=== PATIENT | male | born 1965 | race Caucasian/White ===

== ENCOUNTER 2024-01-11 21:32 | Inpatient (IN) | payer OTHER ==
[2024-01-11 22:55] VITALS: BMI 33.0
[2024-01-11] MEDS ORDERED: NICOTINE POLACRILEX 2 MG GUM BUC PRN (23:04)
[2024-01-11] MEDS ORDERED: hydrOXYzine PAMOATE 25 MG CAPSULE (FP) PO PRN (23:04)
[2024-01-11] MEDS ORDERED: ACETAMINOPHEN 325 MG TABLET (FP) PO PRN (23:04)
[2024-01-11] MEDS ORDERED: LOPERAMIDE HCL 2 MG CAPSULE PO PRN (23:04)
[2024-01-11] MEDS ORDERED: MAG HYDROX/AL HYDROX/SIMETH 30 ML UNIT-DOSE CUP PO PRN (23:04)
[2024-01-11] MEDS ORDERED: IBUPROFEN 400 MG TABLET (FP) PO PRN (23:04)
[2024-01-11] MEDS ORDERED: BENZONATATE 200 MG CAPSULE PO PRN (23:04)
[2024-01-11] MEDS ORDERED: guaiFENesin 600 MG TABLET.ER (FP) PO PRN (23:04)
[2024-01-11] MEDS ORDERED: IBUPROFEN 600 MG TABLET (FP) PO PRN (23:04)
[2024-01-11] MEDS ORDERED: NALOXONE HCL 0.4 MG/ML VIAL IM PRN (23:04)
[2024-01-11] MEDS ORDERED: BENZOCAINE/MENTHOL (CHLORASEPTIC ) LOZENGE MM PRN (23:04)
[2024-01-11] MEDS ORDERED: P-EPHED 60MG/TRIPROLIDI 2.5MG TABLET PO PRN (23:04)
[2024-01-11] MEDS ORDERED: POLYETHYLENE GLYCOL (HEALTHYLAX) 3350 17 GM PACKET PO PRN (23:04)
[2024-01-11] MEDS ORDERED: MAGNESIUM HYDROX 2400MG/30ML ORAL SUSPENSION 30 ML CUP PO PRN (23:04)
[2024-01-11] MEDS ORDERED: NICOTINE POLACRILEX 2 MG LOZENGE BC PRN (23:04)
[2024-01-11] MEDS ORDERED: NALOXONE HCL (KLOXXADO) 8 MG SPRAY NS PRN (23:04)
[2024-01-12] MEDS: MELATONIN 5 MG TABLETS PO SCH (01:15)
[2024-01-12] MEDS ORDERED: ALBUTEROL SO4 HFA INHALER IH PRN (01:38)
[2024-01-12 09:53] LABS: POTASSIUM 4.3 mmol/L (3.5-5.1)
[2024-01-12 10:01] LABS: HEMATOCRIT 37.7 % (35.4-49); HEMOGLOBIN 13.2 GM/dL (11.7-16.9); MCH 29.9 pg (25.7-33.7); MEAN CELL VOLUME 85.6 fl (80-96); MEAN PLT VOLUME 7.2 fl (7.5-11.1); PLATELET COUNT 230 10^3/uL (134-434); RBC 4.41 M/mm3 (4.00-5.60); RDW 13.8 % (11.9-15.9); WHITE BLOOD COUNT 6.5 K/mm3 (4.0-10.0)
[2024-01-12 10:05] LABS: CALCIUM 8.5 mg/dL (8.5-10.1)
[2024-01-12 10:06] LABS: ALBUMIN 3.1 g/dl (3.4-5.0); BLOOD UREA NITROGEN 16.6 mg/dL (7-18)
[2024-01-12 10:09] LABS: CREATININE 0.9 mg/dL (0.55-1.3)
[2024-01-12 10:11] LABS: TOT PROT 6.2 g/dl (6.4-8.2)
[2024-01-12] MEDS: PRENATAL VITAMINS W/ FOLIC ACID TABLET (FP) PO SCH (10:16)
[2024-01-12] MEDS: TUBERCULIN PPD 5 TU/0.1ML SYRINGE (IN PATIENT USE ONLY) ID ONE (10:17)
[2024-01-12] MEDS ORDERED: TUBERCULIN PPD 5 TU/0.1ML VIAL ID ONE (10:17)
[2024-01-12 10:19] LABS: BILIRUBIN,TOTAL 0.4 mg/dL (0.2-1)
[2024-01-12 12:19] LABS: SYPHILIS W/ RPR CONF NON-REACTIVE (NONREACTIVE)
[2024-01-12 14:08] LABS: URINE APPEARANCE CLEAR; URINE BILIRUBIN NEGATIVE (NEGATIVE); URINE COLOR YELLOW; URINE GLUCOSE (UA) NEGATIVE (NEGATIVE); URINE KETONE NEGATIVE (NEGATIVE); URINE LEUK ESTERASE NEGATIVE (NEGATIVE); URINE NITRITE NEGATIVE (NEGATIVE); URINE PROTEIN NEGATIVE (NEGATIVE)
[2024-01-12] MEDS: THIAMINE 100 MG TABLET PO SCH (21:16)
[2024-01-13] MEDS ORDERED: PRENATAL VITAMINS W/ FOLIC ACID TABLET (FP) PO PRN (11:42)
[2024-01-21 07:14] VITALS: RESP 18
[2024-01-23 06:46] VITALS: BP 119/78; PULSE 73; TEMP 97.2
== END 2024-01-23 12:50 | disposition home or self-care (01) | DRG 772 ==
LOC: YASAS 21:32 → Y3E 23:27
PROVIDERS: ADMIT Allergy & Immunology; ATTEND Psychiatry & Neurology Pain Medicine
PROC: HZ42ZZZ Group Counseling for Substance Abuse Treatment, Cognitive-Behavioral (ICD-10-PCS; principal; 2024-01-11)
DX: F14.20 Cocaine dependence, uncomplicated (principal); F12.20 Cannabis dependence, uncomplicated; F17.210 Nicotine dependence, cigarettes, uncomplicated; J45.909 Unspecified asthma, uncomplicated; E78.5 Hyperlipidemia, unspecified; E11.9 Type 2 diabetes mellitus without complications
CPT/HCPCS: 36415; 80053; 80305; 81003; 82962; 85027; 86780; 86803; 87811; 93005; 93010

== ENCOUNTER 2024-07-18 18:24 | Inpatient (IN) | payer OTHER ==
[2024-07-18 18:46] VITALS: BMI 29.6
[2024-07-18] MEDS ORDERED: BENZONATATE 200 MG CAPSULE PO PRN (20:32)
[2024-07-18] MEDS ORDERED: guaiFENesin 600 MG TABLET.ER (FP) PO PRN (20:32)
[2024-07-18] MEDS ORDERED: NICOTINE POLACRILEX 2 MG GUM BUC PRN (20:32)
[2024-07-18] MEDS ORDERED: LOPERAMIDE HCL 2 MG CAPSULE PO PRN (20:32)
[2024-07-18] MEDS ORDERED: IBUPROFEN 400 MG TABLET (FP) PO PRN (20:32)
[2024-07-18] MEDS ORDERED: ACETAMINOPHEN 325 MG TABLET (FP) PO PRN (20:32)
[2024-07-18] MEDS ORDERED: MAG HYDROX/AL HYDROX/SIMETH 30 ML UNIT-DOSE CUP PO PRN (20:32)
[2024-07-18] MEDS ORDERED: BENZOCAINE/MENTHOL (CHLORASEPTIC ) LOZENGE MM PRN (20:32)
[2024-07-18] MEDS ORDERED: POLYETHYLENE GLYCOL (HEALTHYLAX) 3350 17 GM PACKET PO PRN (20:32)
[2024-07-18] MEDS ORDERED: MAGNESIUM HYDROX 2400MG/30ML ORAL SUSPENSION 30 ML CUP PO PRN (20:32)
[2024-07-18] MEDS ORDERED: hydrOXYzine PAMOATE 25 MG CAPSULE (FP) PO PRN (20:32)
[2024-07-18] MEDS ORDERED: NALOXONE (NARCAN) HCL 4 MG/0.1 ML SPRAY NS PRN (20:32)
[2024-07-18] MEDS ORDERED: IBUPROFEN 600 MG TABLET (FP) PO PRN (20:32)
[2024-07-18] MEDS: THIAMINE 100 MG TABLET PO SCH (22:03)
[2024-07-18] MEDS: MELATONIN 5 MG TABLETS PO SCH (22:04)
[2024-07-18] MEDS: BUDESONIDE/FORMETEROL FUMARATE 80/4.5 mcg INHALER IH SCH (22:32)
[2024-07-19] MEDS: CHOLECALCIFEROL (VIT D3) 1,000 UNIT (25 MCG) TABLET PO SCH (09:59)
[2024-07-19] MEDS: TIOTROPIUM BROMIDE 2.5 MCG (SPIRIVA) RESPIMAT INHALER IH SCH (09:59)
[2024-07-19] MEDS: AZITHROMYCIN 250 MG TABLET PO SCH (10:00)
[2024-07-19] MEDS: ALBUTEROL SO4 HFA INHALER IH PRN (10:00)
[2024-07-19] MEDS: predniSONE 20 MG TABLET (UD) PO SCH (10:00)
[2024-07-19] MEDS: PRENATAL VITAMINS W/ FOLIC ACID TABLET (FP) PO SCH (10:00)
[2024-07-19 13:19] LABS: HEMOGLOBIN 13.7 GM/dL (11.7-16.9); MCH 29.4 pg (25.7-33.7); MCHC 33.5 g/dl (32.0-35.9); MEAN CELL VOLUME 87.9 fl (80-96); MEAN PLT VOLUME 8.3 fl (7.5-11.1); PLATELET COUNT 251 10^3/uL (134-434); RBC 4.66 M/mm3 (4.00-5.60); RDW 14.9 % (11.9-15.9); WHITE BLOOD COUNT 7.3 K/mm3 (4.0-10.0)
[2024-07-19 13:29] LABS: POTASSIUM 4.4 mmol/L (3.5-5.1)
[2024-07-19 13:36] LABS: ALBUMIN 3.4 g/dl (3.4-5.0); BLOOD UREA NITROGEN 26.7 mg/dL (7-18); CALCIUM 9.1 mg/dL (8.5-10.1)
[2024-07-19 13:39] LABS: CREATININE 0.9 mg/dL (0.55-1.3)
[2024-07-19 13:41] LABS: BILIRUBIN,TOTAL 0.6 mg/dL (0.2-1); TOT PROT 6.6 g/dl (6.4-8.2)
[2024-07-19 14:18] LABS: PH,URINE 5.5 (5.0-8.0); URINE APPEARANCE Error; URINE BILIRUBIN NEGATIVE (NEGATIVE); URINE COLOR YELLOW; URINE GLUCOSE (UA) NEGATIVE (NEGATIVE); URINE KETONE NEGATIVE (NEGATIVE); URINE LEUK ESTERASE NEGATIVE (NEGATIVE); URINE NITRITE NEGATIVE (NEGATIVE); URINE PROTEIN NEGATIVE (NEGATIVE); URINE UROBILINOGEN 0.2 mg/dL (0.2-1.0)
[2024-07-19] MEDS: ATORVASTATIN CA 20 MG TABLET (FP) PO SCH (21:24)
[2024-07-24 06:35] VITALS: BP 112/66; PULSE 60; RESP 17; TEMP 97.1
[2024-07-24] MEDS: NALOXONE (NYS OPIOID OVERDOSE PROGRAM) 4 MG/0.1 ML SPRAY NS PRN (10:20)
== END 2024-07-24 10:25 | disposition home or self-care (01) | DRG 772 ==
LOC: YASAS 18:24 → Y3W 20:46
PROVIDERS: ADMIT Allergy & Immunology; ATTEND Psychiatry & Neurology Pain Medicine
PROC: HZ42ZZZ Group Counseling for Substance Abuse Treatment, Cognitive-Behavioral (ICD-10-PCS; principal; 2024-07-18)
DX: F14.20 Cocaine dependence, uncomplicated (principal); F10.20 Alcohol dependence, uncomplicated; F12.20 Cannabis dependence, uncomplicated; F17.210 Nicotine dependence, cigarettes, uncomplicated; E78.5 Hyperlipidemia, unspecified; E11.9 Type 2 diabetes mellitus without complications; J45.909 Unspecified asthma, uncomplicated
CPT/HCPCS: 36415; 80053; 80305; 80307; 81003; 85027; 86780; 87811